=== PATIENT | male | born 1955 | race Caucasian/White ===

== ENCOUNTER 2021-09-12 15:05 | Inpatient (IN) ==
[2021-09-12] MEDS ORDERED: ceFAZolin 2,000 MG in 0.9 % Sodium Chloride 100 ML IVPB ONE (16:48)
[2021-09-12] MEDS ORDERED: Furosemide 20 MG/2 ML VIAL IVP ONE (16:48)
[2021-09-12 17:08] LABS: Basophils % 0.9 %; Eosinophils # 0.1 K/mcL (0.0-0.6); Eosinophils % 1.5 %; Hematocrit 34.6 % (37.5-50.1); Hemoglobin 10.6 g/dL (12.9-16.9); Immature Granulocytes % 0.6 % (0-4); Lymphocytes % 25.1 %; Mean Corpuscular HGB Conc 30.6 g/dL (31.6-35.5); Mean Corpuscular Hemoglobin 32.2 pg (28.0-33.3); Mean Corpuscular Volume 105.2 fL (83.0-100.0); Mean Platelet Volume 9.1 fL (9.4-12.4); Monocytes # 0.4 K/mcL (0.0-1.3); Monocytes % 10.4 %; Neutrophils # 2.1 K/mcL (1.6-8.9); Platelet Count 170 K/mcL (140-400); Red Blood Count 3.29 M/mcL (4.19-5.50); Red Cell Distribution Width 20.2 % (11.5-14.5); Segmented Neutrophils % 61.5 %; White Blood Count 3.4 K/mcL (4.3-11.1)
[2021-09-12 17:10] LABS: Lymphocytes # 0.9 K/mcL (0.6-4.6)
[2021-09-12 17:16] LABS: INR 1.4; Prothrombin Time 15.2 Seconds (9.4-12.1)
[2021-09-12 17:19] LABS: Bilirubin,Urine Small (Negative); Blood,Urine Trace-intact (Negative); Clarity,Urine Clear (Clear); Color,Urine Yellow (Yellow); Glucose,Urine (UA) Normal (Normal); Ketones,Urine Negative (Negative); Leukocyte Esterase,Urine Negative (Negative); Nitrite,Urine Negative (Negative); Protein,Urine Negative (Neg-Trace); Urobilinogen,Urine Normal (Normal)
[2021-09-12 17:19] LABS: Activated Partial Thrombo Time 38.6 Seconds (26.0-36.0)
[2021-09-12 17:24] LABS: Alanine Aminotransferase 23 Units/L (7-52); Albumin 3.1 g/dL (3.5-5.7); Albumin/Globulin Ratio 0.9 (1.1-2.2); Alkaline Phosphatase 92 Units/L (34-104); Aspartate Amino Transferase 44 Units/L (13-39); BUN/Creatinine Ratio 19 (6-26); Bilirubin,Direct 0.3 mg/dL (0.0-0.2); Bilirubin,Indirect 0.5 mg/dL (0.0-1.0); Bilirubin,Total 0.8 mg/dL (0.3-1.0); Blood Urea Nitrogen 15 mg/dL (8-23); Calcium 8.9 mg/dL (8.6-10.3); Carbon Dioxide 27 mEq/L (23-29); Chloride 109 mEq/L (98-107); Globulin 3.4 g/dL (2.4-3.5); Glucose 93 mg/dL (70-105); Osmolality,Calculated 299 (280-300); Sodium 144 mEq/L (136-145); Total Protein 6.5 g/dL (6.4-8.9); eGFR For African Americans > 60 (> 60); eGFR For Non-African Americans > 60 (> 60)
[2021-09-12 17:27] LABS: RBC,Urine 0-3 per hpf (0-3)
[2021-09-12 17:27] LABS: Troponin I 0.03 ng/mL (< 0.04)
[2021-09-12] MEDS ORDERED: MOM Conc 10 ML UD.LIQ PO PRN (19:18)
[2021-09-12] MEDS ORDERED: Mag Hydrox/Al Hydrox/Simeth 30 ML UDC PO PRN (19:18)
[2021-09-12] MEDS ORDERED: Ondansetron 4 MG/2 ML VIAL IVP PRN (19:18)
[2021-09-12] MEDS ORDERED: Naloxone 0.4 MG/ML INJ IVP PRN (19:18)
[2021-09-12] MEDS: Apixaban 5 MG TABLET PO SCH (21:54)
[2021-09-12] MEDS: Sucralfate 1 GM TABLET PO SCH (21:55)
[2021-09-12] MEDS: Metoprolol XL (24 HR) Succ 50 MG TAB.ER.24H PO SCH (21:55)
[2021-09-13] MEDS ORDERED: Furosemide 20 MG/2 ML VIAL IVP SCH (06:00)
[2021-09-13 07:34] LABS: Basophils % 1.3 %; Eosinophils # 0.1 K/mcL (0.0-0.6); Eosinophils % 2.7 %; Hematocrit 30.4 % (37.5-50.1); Hemoglobin 9.2 g/dL (12.9-16.9); Immature Granulocytes % 0.7 % (0-4); Lymphocytes # 0.8 K/mcL (0.6-4.6); Lymphocytes % 26.9 %; Mean Corpuscular HGB Conc 30.3 g/dL (31.6-35.5); Mean Corpuscular Hemoglobin 31.5 pg (28.0-33.3); Mean Corpuscular Volume 104.1 fL (83.0-100.0); Mean Platelet Volume 9.1 fL (9.4-12.4); Monocytes # 0.4 K/mcL (0.0-1.3); Monocytes % 13.3 %; Neutrophils # 1.7 K/mcL (1.6-8.9); Platelet Count 152 K/mcL (140-400); Red Blood Count 2.92 M/mcL (4.19-5.50); Red Cell Distribution Width 20.4 % (11.5-14.5); Segmented Neutrophils % 55.1 %
[2021-09-13] MEDS: Metoprolol XL (24 HR) Succ 50 MG TAB.ER.24H PO SCH ×2 (08:32→21:08)
[2021-09-13] MEDS: Sucralfate 1 GM TABLET PO SCH ×3 (08:32→21:08)
[2021-09-13] MEDS: Apixaban 5 MG TABLET PO SCH ×2 (08:34→21:08)
[2021-09-13] MEDS: Folic Acid 1 MG TABLET PO SCH (08:34)
[2021-09-13] MEDS: Aspirin Enteric Coated 81 MG Tablet PO SCH (08:34)
[2021-09-13] MEDS: *HR* Amiodarone 200 MG TABLET PO SCH (08:34)
[2021-09-13] MEDS: Furosemide 20 MG/2 ML VIAL IVP SCH (08:35)
[2021-09-13] MEDS: Vancomycin 1,500 MG/265 ML IV.SOLN IVPB SCH ×2 (09:56→21:08)
[2021-09-13 11:10] LABS: BUN/Creatinine Ratio 16 (6-26); Blood Urea Nitrogen 13 mg/dL (8-23); Calcium 8.3 mg/dL (8.6-10.3); Carbon Dioxide 28 mEq/L (23-29); Chloride 111 mEq/L (98-107); Glucose 103 mg/dL (70-105); Osmolality,Calculated 300 (280-300); Potassium 3.5 mEq/L (3.5-5.1); Sodium 145 mEq/L (136-145); eGFR For African Americans > 60 (> 60); eGFR For Non-African Americans > 60 (> 60)
[2021-09-13] MEDS ORDERED: 0.9 % Sodium Chloride 1,000 ML IVC SCH (12:00)
[2021-09-13] MEDS: Piperacillin/Tazobactam 3.375 GM in 0.9 % Sodium Chloride Mini Bag 100 ML IVPB SCH (16:38)
[2021-09-14] MEDS: Piperacillin/Tazobactam 3.375 GM in 0.9 % Sodium Chloride Mini Bag 100 ML IVPB SCH ×3 (00:30→15:40)
[2021-09-14 06:21] LABS: Basophils % 0.7 %; Eosinophils # 0.1 K/mcL (0.0-0.6); Eosinophils % 2.4 %; Hematocrit 29.8 % (37.5-50.1); Immature Granulocytes % 0.7 % (0-4); Lymphocytes % 34.7 %; Mean Corpuscular HGB Conc 30.2 g/dL (31.6-35.5); Mean Platelet Volume 9.1 fL (9.4-12.4); Monocytes # 0.3 K/mcL (0.0-1.3); Monocytes % 11.3 %; Neutrophils # 1.5 K/mcL (1.6-8.9); Platelet Count 145 K/mcL (140-400); Red Blood Count 2.81 M/mcL (4.19-5.50); Red Cell Distribution Width 20.5 % (11.5-14.5); Segmented Neutrophils % 50.2 %; White Blood Count 2.9 K/mcL (4.3-11.1)
[2021-09-14 07:39] LABS: BUN/Creatinine Ratio 15 (6-26); Blood Urea Nitrogen 12 mg/dL (8-23); Calcium 8.2 mg/dL (8.6-10.3); Carbon Dioxide 28 mEq/L (23-29); Chloride 110 mEq/L (98-107); Glucose 119 mg/dL (70-105); Osmolality,Calculated 299 (280-300); Potassium 3.6 mEq/L (3.5-5.1); Sodium 144 mEq/L (136-145); eGFR For African Americans > 60 (> 60); eGFR For Non-African Americans > 60 (> 60)
[2021-09-14 07:47] LABS: Anisocytosis 1+ (Not Present); Platelet Estimate Normal (Normal); Smudge Cells Present (Not Present)
[2021-09-14 08:54] LABS: % Iron Saturation 6 % (20-55); Iron 20 mcg/dL (65-175); Transferrin 247 mg/dL (203-362)
[2021-09-14 09:23] LABS: Folate > 22.3 ng/mL (3.0-16.0); Vitamin B12 348 pg/mL (250-1100)
[2021-09-14] MEDS: Apixaban 5 MG TABLET PO SCH ×2 (09:59→21:37)
[2021-09-14] MEDS: *HR* Amiodarone 200 MG TABLET PO SCH (09:59)
[2021-09-14] MEDS: Sucralfate 1 GM TABLET PO SCH ×3 (09:59→21:37)
[2021-09-14] MEDS: Furosemide 20 MG/2 ML VIAL IVP SCH ×2 (09:59→21:38)
[2021-09-14] MEDS: Folic Acid 1 MG TABLET PO SCH (09:59)
[2021-09-14] MEDS: Metoprolol XL (24 HR) Succ 50 MG TAB.ER.24H PO SCH ×2 (09:59→21:37)
[2021-09-14] MEDS: Aspirin Enteric Coated 81 MG Tablet PO SCH (09:59)
[2021-09-14] MEDS: Vancomycin 1,500 MG/265 ML IV.SOLN IVPB SCH ×2 (11:46→21:47)
[2021-09-14] MEDS: Acetaminophen 325 MG TABLET PO PRN (21:46)
[2021-09-15] MEDS: Piperacillin/Tazobactam 3.375 GM in 0.9 % Sodium Chloride Mini Bag 100 ML IVPB SCH ×2 (00:06→08:33)
[2021-09-15 07:23] LABS: Basophils % 1.3 %; Eosinophils # 0.1 K/mcL (0.0-0.6); Hematocrit 28.7 % (37.5-50.1); Hemoglobin 8.8 g/dL (12.9-16.9); Immature Granulocytes % 0.9 % (0-4); Lymphocytes # 0.8 K/mcL (0.6-4.6); Lymphocytes % 35.8 %; Mean Corpuscular HGB Conc 30.7 g/dL (31.6-35.5); Mean Corpuscular Hemoglobin 32.2 pg (28.0-33.3); Mean Corpuscular Volume 105.1 fL (83.0-100.0); Monocytes # 0.3 K/mcL (0.0-1.3); Monocytes % 13.8 %; Platelet Count 137 K/mcL (140-400); Red Blood Count 2.73 M/mcL (4.19-5.50); Red Cell Distribution Width 20.5 % (11.5-14.5); Segmented Neutrophils % 45.2 %; White Blood Count 2.3 K/mcL (4.3-11.1)
[2021-09-15 07:41] LABS: BUN/Creatinine Ratio 12 (6-26); Blood Urea Nitrogen 11 mg/dL (8-23); Calcium 8.3 mg/dL (8.6-10.3); Carbon Dioxide 30 mEq/L (23-29); Chloride 106 mEq/L (98-107); Glucose 117 mg/dL (70-105); Osmolality,Calculated 296 (280-300); Potassium 3.4 mEq/L (3.5-5.1); Sodium 143 mEq/L (136-145); eGFR For African Americans > 60 (> 60); eGFR For Non-African Americans > 60 (> 60)
[2021-09-15] MEDS: Folic Acid 1 MG TABLET PO SCH (08:33)
[2021-09-15] MEDS: Apixaban 5 MG TABLET PO SCH ×2 (08:33→20:20)
[2021-09-15] MEDS: *HR* Amiodarone 200 MG TABLET PO SCH (08:33)
[2021-09-15] MEDS: Aspirin Enteric Coated 81 MG Tablet PO SCH (08:33)
[2021-09-15] MEDS: Metoprolol XL (24 HR) Succ 50 MG TAB.ER.24H PO SCH ×2 (08:33→20:20)
[2021-09-15] MEDS: Furosemide 20 MG/2 ML VIAL IVP SCH ×2 (08:33→16:36)
[2021-09-15] MEDS: Sucralfate 1 GM TABLET PO SCH ×3 (08:33→20:21)
[2021-09-15] MEDS: Vancomycin 1,500 MG/265 ML IV.SOLN IVPB SCH (08:34)
[2021-09-15] MEDS: Acetaminophen 325 MG TABLET PO PRN ×2 (08:50→20:25)
[2021-09-16] MEDS: *HR* Amiodarone 200 MG TABLET PO SCH (08:34)
[2021-09-16] MEDS: Folic Acid 1 MG TABLET PO SCH (08:34)
[2021-09-16] MEDS: Apixaban 5 MG TABLET PO SCH ×2 (08:34→21:32)
[2021-09-16] MEDS: Aspirin Enteric Coated 81 MG Tablet PO SCH (08:34)
[2021-09-16] MEDS: Metoprolol XL (24 HR) Succ 50 MG TAB.ER.24H PO SCH ×2 (08:35→21:32)
[2021-09-16] MEDS: Furosemide 20 MG/2 ML VIAL IVP SCH ×2 (08:35→16:53)
[2021-09-16] MEDS: Sucralfate 1 GM TABLET PO SCH ×3 (08:35→21:32)
[2021-09-16] MEDS ORDERED: Furosemide 20 MG/2 ML VIAL IVP ONE (09:11)
[2021-09-17 07:13] VITALS: BP 149/82; PULSE 90; RESP 18; TEMP 98.3; O2SAT 91
[2021-09-17] MEDS: Furosemide 20 MG/2 ML VIAL IVP SCH ×2 (09:06→17:06)
[2021-09-17] MEDS: Aspirin Enteric Coated 81 MG Tablet PO SCH (09:07)
[2021-09-17] MEDS: Folic Acid 1 MG TABLET PO SCH (09:07)
[2021-09-17] MEDS: Acetaminophen 325 MG TABLET PO PRN (09:07)
[2021-09-17] MEDS: Metoprolol XL (24 HR) Succ 50 MG TAB.ER.24H PO SCH (09:07)
[2021-09-17] MEDS: Sucralfate 1 GM TABLET PO SCH ×2 (09:08→17:03)
[2021-09-17] MEDS: *HR* Amiodarone 200 MG TABLET PO SCH (09:08)
[2021-09-17] MEDS: Apixaban 5 MG TABLET PO SCH (09:08)
== END 2021-09-17 19:25 | disposition home or self-care (01) | DRG 871 ==
LOC: EMEROOPIK 15:05 → INPPIK 15:05
PROVIDERS: ADMIT Internal Medicine; ATTEND Internal Medicine

== ENCOUNTER 2021-10-08 13:35 | Inpatient (IN) ==
[2021-10-08 14:36] LABS: Basophils % 0.6 %; Eosinophils % 0.6 %; Hemoglobin 10.3 g/dL (12.9-16.9); Immature Granulocytes % 1.3 % (0-4); Lymphocytes # 1.2 K/mcL (0.6-4.6); Lymphocytes % 21.9 %; Mean Corpuscular HGB Conc 31.2 g/dL (31.6-35.5); Mean Corpuscular Hemoglobin 32.4 pg (28.0-33.3); Mean Corpuscular Volume 103.8 fL (83.0-100.0); Mean Platelet Volume 8.9 fL (9.4-12.4); Monocytes # 0.6 K/mcL (0.0-1.3); Neutrophils # 3.5 K/mcL (1.6-8.9); Platelet Count 104 K/mcL (140-400); Red Blood Count 3.18 M/mcL (4.19-5.50); Red Cell Distribution Width 18.5 % (11.5-14.5); Segmented Neutrophils % 64.6 %; White Blood Count 5.4 K/mcL (4.3-11.1)
[2021-10-08 14:52] LABS: INR 1.7; Prothrombin Time 18.7 Seconds (9.4-12.1)
[2021-10-08 14:56] LABS: Alanine Aminotransferase 31 Units/L (7-52); Albumin/Globulin Ratio 0.8 (1.1-2.2); Alkaline Phosphatase 111 Units/L (34-104); Aspartate Amino Transferase 61 Units/L (13-39); BUN/Creatinine Ratio 8 (6-26); Bilirubin,Total 1.2 mg/dL (0.3-1.0); Blood Urea Nitrogen 7 mg/dL (8-23); Calcium 8.3 mg/dL (8.6-10.3); Carbon Dioxide 28 mEq/L (23-29); Chloride 101 mEq/L (98-107); Globulin 3.6 g/dL (2.4-3.5); Glucose 101 mg/dL (70-105); Osmolality,Calculated 282 (280-300); Potassium 4.1 mEq/L (3.5-5.1); Sodium 137 mEq/L (136-145); Total Protein 6.6 g/dL (6.4-8.9); eGFR For African Americans > 60 (> 60); eGFR For Non-African Americans > 60 (> 60)
[2021-10-08] MEDS ORDERED: Naloxone 0.4 MG/ML INJ IVP PRN (18:54)
[2021-10-08] MEDS ORDERED: Ondansetron 4 MG/2 ML VIAL IVP PRN (18:54)
[2021-10-08] MEDS ORDERED: Mag Hydrox/Al Hydrox/Simeth 30 ML UDC PO PRN (18:54)
[2021-10-08] MEDS: Acetaminophen 325 MG TABLET PO PRN (20:53)
[2021-10-08] MEDS: Melatonin 3 MG TABLET PO PRN (20:53)
[2021-10-08] MEDS: Metoprolol XL (24 HR) Succ 50 MG TAB.ER.24H PO SCH (20:53)
[2021-10-08] MEDS: Apixaban 5 MG TABLET PO SCH (20:54)
[2021-10-08] MEDS: Sucralfate 1 GM TABLET PO SCH (20:54)
[2021-10-08] MEDS: Furosemide 20 MG/2 ML VIAL IVP SCH (21:18)
[2021-10-09] MEDS: Piperacillin/Tazobactam 3.375 GM in 0.9 % Sodium Chloride Mini Bag 100 ML IVPB SCH ×3 (00:26→16:58)
[2021-10-09 07:15] LABS: Basophils % 0.6 %; Eosinophils # 0.1 K/mcL (0.0-0.6); Eosinophils % 1.7 %; Hematocrit 29.9 % (37.5-50.1); Hemoglobin 9.2 g/dL (12.9-16.9); Immature Granulocytes % 1.2 % (0-4); Lymphocytes % 28.2 %; Mean Corpuscular HGB Conc 30.8 g/dL (31.6-35.5); Mean Corpuscular Hemoglobin 33.1 pg (28.0-33.3); Mean Corpuscular Volume 107.6 fL (83.0-100.0); Mean Platelet Volume 9.8 fL (9.4-12.4); Monocytes # 0.4 K/mcL (0.0-1.3); Monocytes % 12.5 %; Neutrophils # 1.9 K/mcL (1.6-8.9); Red Blood Count 2.78 M/mcL (4.19-5.50); Red Cell Distribution Width 18.8 % (11.5-14.5); Segmented Neutrophils % 55.8 %; White Blood Count 3.4 K/mcL (4.3-11.1)
[2021-10-09 07:28] LABS: Platelet Count 81 K/mcL (140-400)
[2021-10-09 07:38] LABS: BUN/Creatinine Ratio 14 (6-26); Blood Urea Nitrogen 11 mg/dL (8-23); Calcium 8.1 mg/dL (8.6-10.3); Carbon Dioxide 31 mEq/L (23-29); Chloride 104 mEq/L (98-107); Glucose 112 mg/dL (70-105); Osmolality,Calculated 292 (280-300); Sodium 141 mEq/L (136-145); eGFR For African Americans > 60 (> 60); eGFR For Non-African Americans > 60 (> 60)
[2021-10-09] MEDS: Aspirin 81 MG TAB.CHEW PO SCH (08:25)
[2021-10-09] MEDS: Metoprolol XL (24 HR) Succ 50 MG TAB.ER.24H PO SCH ×2 (08:25→21:11)
[2021-10-09] MEDS: Folic Acid 1 MG TABLET PO SCH (08:25)
[2021-10-09] MEDS: Sucralfate 1 GM TABLET PO SCH ×3 (08:25→21:11)
[2021-10-09] MEDS: Apixaban 5 MG TABLET PO SCH ×2 (08:26→21:11)
[2021-10-09] MEDS: *HR* Amiodarone 200 MG TABLET PO SCH (08:26)
[2021-10-09] MEDS: Furosemide 20 MG/2 ML VIAL IVP SCH ×2 (08:27→16:58)
[2021-10-09] MEDS: Acetaminophen 325 MG TABLET PO PRN (18:52)
[2021-10-09] MEDS: Vancomycin 1,500 MG/265 ML IV.SOLN IVPB SCH (21:11)
[2021-10-09] MEDS: Neosporin OINT 15 GM TUBE TP SCH (22:33)
[2021-10-10] MEDS: Piperacillin/Tazobactam 3.375 GM in 0.9 % Sodium Chloride Mini Bag 100 ML IVPB SCH ×3 (00:15→21:19)
[2021-10-10 08:34] LABS: Basophils % 1.2 %; Eosinophils # 0.1 K/mcL (0.0-0.6); Eosinophils % 2.8 %; Hematocrit 29.9 % (37.5-50.1); Hemoglobin 9.2 g/dL (12.9-16.9); Immature Granulocytes % 1.2 % (0-4); Lymphocytes % 41.3 %; Mean Corpuscular HGB Conc 30.8 g/dL (31.6-35.5); Mean Corpuscular Volume 107.2 fL (83.0-100.0); Mean Platelet Volume 9.3 fL (9.4-12.4); Monocytes # 0.4 K/mcL (0.0-1.3); Monocytes % 15.7 %; Red Blood Count 2.79 M/mcL (4.19-5.50); Red Cell Distribution Width 18.6 % (11.5-14.5); Segmented Neutrophils % 37.8 %; White Blood Count 2.5 K/mcL (4.3-11.1)
[2021-10-10 08:39] LABS: Platelet Count 87 K/mcL (140-400)
[2021-10-10 09:05] LABS: BUN/Creatinine Ratio 14 (6-26); Blood Urea Nitrogen 11 mg/dL (8-23); Calcium 8.2 mg/dL (8.6-10.3); Carbon Dioxide 33 mEq/L (23-29); Chloride 103 mEq/L (98-107); Glucose 104 mg/dL (70-105); Osmolality,Calculated 294 (280-300); Potassium 3.9 mEq/L (3.5-5.1); Sodium 142 mEq/L (136-145); eGFR For African Americans > 60 (> 60); eGFR For Non-African Americans > 60 (> 60)
[2021-10-10] MEDS: Folic Acid 1 MG TABLET PO SCH (11:15)
[2021-10-10] MEDS: Aspirin 81 MG TAB.CHEW PO SCH (11:16)
[2021-10-10] MEDS: Furosemide 20 MG/2 ML VIAL IVP SCH ×2 (11:16→18:33)
[2021-10-10] MEDS: Sucralfate 1 GM TABLET PO SCH ×3 (11:16→21:25)
[2021-10-10] MEDS: Metoprolol XL (24 HR) Succ 50 MG TAB.ER.24H PO SCH ×2 (11:16→21:25)
[2021-10-10] MEDS: Apixaban 5 MG TABLET PO SCH ×2 (11:16→21:25)
[2021-10-10] MEDS: *HR* Amiodarone 200 MG TABLET PO SCH (11:16)
[2021-10-10] MEDS: Neosporin OINT 15 GM TUBE TP SCH ×2 (11:17→21:25)
[2021-10-10] MEDS: Acetaminophen 325 MG TABLET PO PRN (18:41)
[2021-10-10] MEDS: Vancomycin 1,500 MG/265 ML IV.SOLN IVPB SCH (21:20)
[2021-10-11] MEDS: Piperacillin/Tazobactam 3.375 GM in 0.9 % Sodium Chloride Mini Bag 100 ML IVPB SCH (03:48)
[2021-10-11 07:34] LABS: Basophils % 0.8 %; Eosinophils # 0.1 K/mcL (0.0-0.6); Eosinophils % 2.2 %; Hematocrit 29.3 % (37.5-50.1); Immature Granulocytes % 1.7 % (0-4); Lymphocytes # 1.2 K/mcL (0.6-4.6); Lymphocytes % 33.6 %; Mean Corpuscular HGB Conc 30.7 g/dL (31.6-35.5); Mean Corpuscular Hemoglobin 32.7 pg (28.0-33.3); Mean Corpuscular Volume 106.5 fL (83.0-100.0); Mean Platelet Volume 9.6 fL (9.4-12.4); Monocytes # 0.5 K/mcL (0.0-1.3); Monocytes % 13.3 %; Neutrophils # 1.7 K/mcL (1.6-8.9); Platelet Count 112 K/mcL (140-400); Red Blood Count 2.75 M/mcL (4.19-5.50); Red Cell Distribution Width 18.5 % (11.5-14.5); Segmented Neutrophils % 48.4 %; White Blood Count 3.6 K/mcL (4.3-11.1)
[2021-10-11] MEDS: Furosemide 20 MG/2 ML VIAL IVP SCH ×2 (08:12→15:43)
[2021-10-11 09:02] LABS: BUN/Creatinine Ratio 15 (6-26); Blood Urea Nitrogen 12 mg/dL (8-23); Calcium 8.1 mg/dL (8.6-10.3); Carbon Dioxide 33 mEq/L (23-29); Chloride 104 mEq/L (98-107); Glucose 106 mg/dL (70-105); Osmolality,Calculated 294 (280-300); Potassium 3.8 mEq/L (3.5-5.1); Sodium 142 mEq/L (136-145); eGFR For African Americans > 60 (> 60); eGFR For Non-African Americans > 60 (> 60)
[2021-10-11] MEDS: Sucralfate 1 GM TABLET PO SCH ×3 (09:15→21:43)
[2021-10-11] MEDS: Aspirin 81 MG TAB.CHEW PO SCH (09:15)
[2021-10-11] MEDS: Folic Acid 1 MG TABLET PO SCH (09:16)
[2021-10-11] MEDS: Apixaban 5 MG TABLET PO SCH ×2 (09:16→21:43)
[2021-10-11] MEDS: *HR* Amiodarone 200 MG TABLET PO SCH (09:16)
[2021-10-11] MEDS: Metoprolol XL (24 HR) Succ 50 MG TAB.ER.24H PO SCH ×2 (09:17→21:43)
[2021-10-11] MEDS: Neosporin OINT 15 GM TUBE TP SCH ×2 (12:07→21:44)
[2021-10-11] MEDS ORDERED: Vancomycin 1,500 MG/265 ML IV.SOLN IVPB SCH (19:00)
[2021-10-11] MEDS: Melatonin 3 MG TABLET PO PRN (21:46)
[2021-10-11] MEDS: Acetaminophen 325 MG TABLET PO PRN (21:46)
[2021-10-12 07:06] LABS: Basophils % 0.7 %; Eosinophils # 0.1 K/mcL (0.0-0.6); Eosinophils % 2.7 %; Hemoglobin 8.8 g/dL (12.9-16.9); Immature Granulocytes % 1.8 % (0-4); Lymphocytes # 1.6 K/mcL (0.6-4.6); Lymphocytes % 34.4 %; Mean Corpuscular HGB Conc 30.3 g/dL (31.6-35.5); Mean Corpuscular Hemoglobin 32.4 pg (28.0-33.3); Mean Corpuscular Volume 106.6 fL (83.0-100.0); Mean Platelet Volume 9.1 fL (9.4-12.4); Monocytes # 0.5 K/mcL (0.0-1.3); Neutrophils # 2.2 K/mcL (1.6-8.9); Platelet Count 120 K/mcL (140-400); Red Blood Count 2.72 M/mcL (4.19-5.50); Red Cell Distribution Width 18.6 % (11.5-14.5); Segmented Neutrophils % 48.4 %; White Blood Count 4.5 K/mcL (4.3-11.1)
[2021-10-12 07:29] LABS: BUN/Creatinine Ratio 20 (6-26); Blood Urea Nitrogen 15 mg/dL (8-23); Calcium 8.6 mg/dL (8.6-10.3); Carbon Dioxide 33 mEq/L (23-29); Chloride 103 mEq/L (98-107); Glucose 100 mg/dL (70-105); Osmolality,Calculated 291 (280-300); Sodium 140 mEq/L (136-145); eGFR For African Americans > 60 (> 60); eGFR For Non-African Americans > 60 (> 60)
[2021-10-12] MEDS: Aspirin 81 MG TAB.CHEW PO SCH (09:11)
[2021-10-12] MEDS: Metoprolol XL (24 HR) Succ 50 MG TAB.ER.24H PO SCH ×2 (09:11→20:18)
[2021-10-12] MEDS: Sucralfate 1 GM TABLET PO SCH ×3 (09:11→20:17)
[2021-10-12] MEDS: Apixaban 5 MG TABLET PO SCH ×2 (09:11→20:17)
[2021-10-12] MEDS: Neosporin OINT 15 GM TUBE TP SCH ×2 (09:12→20:18)
[2021-10-12] MEDS: *HR* Amiodarone 200 MG TABLET PO SCH (09:12)
[2021-10-12] MEDS: Furosemide 20 MG/2 ML VIAL IVP SCH (09:12)
[2021-10-12] MEDS: Folic Acid 1 MG TABLET PO SCH (09:12)
[2021-10-12] MEDS: Furosemide 20 MG TABLET PO SCH (18:27)
[2021-10-12] MEDS: Melatonin 3 MG TABLET PO PRN (20:18)
[2021-10-12 22:41] VITALS: RESP 17
[2021-10-13 06:46] VITALS: BP 124/77; PULSE 75; TEMP 98.4; O2SAT 93
[2021-10-13 07:58] LABS: Basophils # 0.1 K/mcL (0.0-0.2); Basophils % 1.1 %; Eosinophils # 0.1 K/mcL (0.0-0.6); Eosinophils % 1.7 %; Hematocrit 30.4 % (37.5-50.1); Hemoglobin 9.4 g/dL (12.9-16.9); Immature Granulocytes % 1.5 % (0-4); Lymphocytes # 1.5 K/mcL (0.6-4.6); Lymphocytes % 32.3 %; Mean Corpuscular HGB Conc 30.9 g/dL (31.6-35.5); Mean Corpuscular Volume 106.7 fL (83.0-100.0); Mean Platelet Volume 9.2 fL (9.4-12.4); Monocytes # 0.5 K/mcL (0.0-1.3); Monocytes % 11.5 %; Neutrophils # 2.5 K/mcL (1.6-8.9); Platelet Count 140 K/mcL (140-400); Red Blood Count 2.85 M/mcL (4.19-5.50); Red Cell Distribution Width 18.4 % (11.5-14.5); Segmented Neutrophils % 51.9 %; White Blood Count 4.7 K/mcL (4.3-11.1)
[2021-10-13 08:16] LABS: BUN/Creatinine Ratio 21 (6-26); Blood Urea Nitrogen 17 mg/dL (8-23); Calcium 8.8 mg/dL (8.6-10.3); Carbon Dioxide 31 mEq/L (23-29); Chloride 102 mEq/L (98-107); Glucose 109 mg/dL (70-105); Osmolality,Calculated 290 (280-300); Potassium 4.2 mEq/L (3.5-5.1); Sodium 139 mEq/L (136-145); eGFR For African Americans > 60 (> 60); eGFR For Non-African Americans > 60 (> 60)
[2021-10-13] MEDS: Sucralfate 1 GM TABLET PO SCH (08:25)
[2021-10-13] MEDS: Folic Acid 1 MG TABLET PO SCH (08:25)
[2021-10-13] MEDS: Apixaban 5 MG TABLET PO SCH (08:25)
[2021-10-13] MEDS: Aspirin 81 MG TAB.CHEW PO SCH (08:25)
[2021-10-13] MEDS: Metoprolol XL (24 HR) Succ 50 MG TAB.ER.24H PO SCH (08:25)
[2021-10-13] MEDS: Furosemide 20 MG TABLET PO SCH (08:25)
[2021-10-13] MEDS: *HR* Amiodarone 200 MG TABLET PO SCH (08:25)
[2021-10-13] MEDS: Neosporin OINT 15 GM TUBE TP SCH (08:26)
== END 2021-10-13 12:20 | disposition home or self-care (01) | DRG 603 ==
LOC: EMEROOPIK 13:35 → INPPIK 13:35
PROVIDERS: ADMIT Family Medicine; ATTEND Family Medicine